=== PATIENT | male | born 1990 | race Caucasian/White ===

== ENCOUNTER 2018-07-26 19:01 | Emergency (ER) | payer OTHER ==
[~2018-07-26] VITALS: Ht 180.3 cm; Wt 95.3 kg
[2018-07-26 19:10] VITALS: BP 130/76
--- NOTE | 2018-07-26 19:14 | NUR ---
TO LOBBY AMB, GABRIELLA RODRIGUEZ NOTED
--- NOTE | 2018-07-26 19:47 | NUR ---
PATIENT AMBULATED TO ER CHAIR E.
--- NOTE | 2018-07-26 20:48 | NUR ---
PT IS A 28 Y/O MALE WHO PRESENTS TO THE ED C/O MED REFILL. PT STATES THAT HE NEEDS RISPERIDONE 3 MG. PT DENIES PAIN AT THIS TIME. PT DENIES CP, SOB, N/V/D. PT AWAKE AND ALERT, RR EVEN/UNLABORED. PT REPOSITIONED FOR COMFORT, BED IN LOWEST POSITION. ER MD DR. CARPIO NOTIFIED. WILL CONTINUE TO MONITOR.
[2018-07-26 21:35] VITALS: BP 138/85
--- NOTE | 2018-07-26 21:35 | NUR ---
Patient discharged with v/s stable. Written and verbal after care instructions given and explained. Patient alert, oriented and verbalized understanding of instructions. Ambulatory with steady gait. All questions addressed prior to discharge. ID band removed. Patient advised to follow up with PMD. Rx of RISPERIDONE 3MG given. Patient educated on indication of medication including possible reaction and side effects. Opportunity to ask questions provided and answered.
== END 2018-07-26 21:35 | disposition home or self-care (01) ==
LOC: MED 19:01
DX: F31.9 Bipolar disorder, unspecified (principal); Z76.0 Encounter for issue of repeat prescription; Z79.899 Other long term (current) drug therapy
CPT/HCPCS: 99283

== ENCOUNTER 2018-08-11 18:18 | Emergency (ER) | payer OTHER ==
[~2018-08-11] VITALS: Ht 198.1 cm; Wt 110.2 kg
[2018-08-11 18:23] VITALS: BP 111/56
--- NOTE | 2018-08-11 18:48 | NUR ---
Patient ambulated to bed 3. RN evaluating patient at bedside.
--- NOTE | 2018-08-11 18:58 | NUR ---
PT BIB SELF FOR MEDICATION REFIL. PT STATES HE IS ONLY HERE FOR A MEDICATION REFIL ON DIVALPROEX 250MG AND RISPERIDONE 3MG. PT IS AAOX4, COOPERATIVE, AND WELL GROOMED. NO PAIN AT THIS TIME. VSS. ER TO SEE PT. MEDHX:SCHIZOPHRENIA, BIPOLAR, ANXIETY, AND DEPRESSION
--- NOTE | 2018-08-11 19:10 | NUR ---
RECEIVED REPORT FROM AM NURSE. PT LAYING IN BED, RR EVEN AND UNLABORED. ALL NEEDS MET.
[2018-08-11 20:10] VITALS: BP 100/70
--- NOTE | 2018-08-11 20:10 | NUR ---
Patient discharged with v/s stable. Written and verbal after care instructions given and explained. Patient alert, oriented and verbalized understanding of instructions. Ambulatory with steady gait. All questions addressed prior to discharge. ID band removed. Patient advised to follow up with PMD. Rx of RISPERIDONE 3MG, DIVALPROEX 500MG AND DIVALPROEX 250MG given. Patient educated on indication of medication including possible reaction and side effects. Opportunity to ask questions provided and answered.
== END 2018-08-11 20:10 | disposition home or self-care (01) ==
LOC: MED 18:18
DX: F31.9 Bipolar disorder, unspecified (principal); F17.210 Nicotine dependence, cigarettes, uncomplicated; Z76.0 Encounter for issue of repeat prescription
CPT/HCPCS: 99283